=== PATIENT | male | born 1995 | race Caucasian/White ===

== ENCOUNTER → 2025-06-15 | Outpatient (CLI) | payer OTHER, SELFPAY ==
--- OUTSIDE RECORDS SUMMARY | 2025-06-15 15:57 | XMS RPT_ITS | CCD ---
Author Organization [facility] Care Team Providers Care Sales Compensation Analyst Name Role Phone Jesse Chi Unavailable Unavailable Ungur, Remus Unavailable Unavailable MASSANYI, MEHREEN Z Unavailable Unavailable STRINGER, CHI A Unavailable Unavailable STRINGER, CHI A Unavailable Unavailable MASSANYI, MEHREEN Z Unavailable Unavailable MASSANYI, MEHREEN Z Unavailable Unavailable STRINGER, CHI A Unavailable Unavailable STRINGER, CHI A Unavailable Unavailable MASSANYI, MEHREEN Z Unavailable Unavailable MASSANYI, MEHREEN Z Unavailable Unavailable ANDRADE LAGUNA Attending Unavailable [facility] STR[facility] Primary Care Unavailable Problems Problem Classification Problem Date Documented Da te Episodic/Chronic Disorders of teeth and jaw (1 source) Other specified disorders of teeth and supporting structures; Translations: [OTHER SPECIFIED DISORDERS OF TEETH AND SUPPORTING STRUCTURES] Onset: 05-21-2017 Episodic Results Test Name Value Interpretation Reference Range Facility DUPLEX SCROTUMon 02-22-20 DUPLEX SCROTUM CLINICAL HISTORY: Epidermoid cyst of the right testicle demonstrated onultrasound performed 09/01/2015 with surgical removal of September 2015TECHNIQUE: Grayscale, color and spectral Doppler evaluation of the scrotum andinguinal canals was performed.COMPARISON: 04/30/2016FINDINGS:RIGHT:T ESTIS SIZE: 5 cm x 2.2 cm x 2.9 cm - volume 16.9 mL.POSITION: Right scrotal sac.PARENCHYMA: The postoperative site is again noted in the superior right testicle but is now less well defined and decreasing in size representing postoperativehealing changes. The remainder of the right testicle appears normalEPIDIDYMIS: Normal. 0.8 cm head.INGUINAL CANAL: Normal spermatic cord. No hernia.LEFT:TESTIS SIZE: 5.1 cm x 1.9 cm x 3.1 cm - volume mL.POSITION: Left scrotal sac.PARENCHYMA: Normal testicular echogenicity. No lesions.EPIDIDYMIS: Normal. 1.1 cm head. 3 mm epididymal cyst is incidentally notedINGUINAL CANAL: Normal spermatic cord. No hernia.OTHER FINDINGS: Mild dilation of the pampiniform plexus is again notedDOPPLER: Spectral Doppler evaluation demonstrates arterial waveforms within both testes. Venous waveforms are also present on the spectral tracings. The overall color flow is symmetric. No epididymal hyperemia.IMPRESSION:Oc nued interval improvement in postoperative site involving the right uppertesticle at site of earlier resection of epidermoid cyst.This report has been created using voice recognition software. It may containminor errors which are inherent in voice recognition technologySigned by: Dr. Malik Bazan at 02/21/2017 11:27 Normal [facility] US SCROTUM AND TESTICLESon 0 02-21-2017 US SCROTUM AND TESTICLES CLINICAL HISTORY: Epidermoid cyst of the right testicle demonstrated onultrasound performed 09/01/2015 with surgical removal of September 2015TECHNIQUE: Grayscale, color and spectral Doppler evaluation of the scrotum andinguinal canals was performed.COMPARISON: 04/30/2016FINDINGS:RIGHT:T ESTIS SIZE: 5 cm x 2.2 cm x 2.9 cm - volume 16.9 mL.POSITION: Right scrotal sac.PARENCHYMA: The postoperative site is again noted in the superior right testicle but is now less well defined and decreasing in size representing postoperativehealing changes. The remainder of the right testicle appears normalEPIDIDYMIS: Normal. 0.8 cm head.INGUINAL CANAL: Normal spermatic cord. No hernia.LEFT:TESTIS SIZE: 5.1 cm x 1.9 cm x 3.1 cm - volume mL.POSITION: Left scrotal sac.PARENCHYMA: Normal testicular echogenicity. No lesions.EPIDIDYMIS: Normal. 1.1 cm head. 3 mm epididymal cyst is incidentally notedINGUINAL CANAL: Normal spermatic cord. No hernia.OTHER FINDINGS: Mild dilation of the pampiniform plexus is again notedDOPPLER: Spectral Doppler evaluation demonstrates arterial waveforms within both testes. Venous waveforms are also present on the spectral tracings. The overall color flow is symmetric. No epididymal hyperemia.IMPRESSION:Oc nued interval improvement in postoperative site involving the right uppertesticle at site of earlier resection of epidermoid cyst.This report has been created using voice recognition software. It may containminor errors which are inherent in voice recognition technologySigned by: Dr. Malik Bazan at 02/21/2017 11:27 Normal [facility] Encounters Encounter Date Encounter Type Care Provider Facility Start: 09-15-2018 End: 09-15-2018 Emergency department patient visit ANDRADE LAGUNA Facility:B Start: 02-21-2017 End: 02-22-2017 Ambulatory [facility] Start: 02-06-2017 End: 02-06-2017 Ambulatory MEHREEN CARLOS [facility] Start: 06-25-2015 End: 06-26-2015 Emergency department patient visit hCi Stringer Facility:[facility] Payers Date Payer Category Payer Self-pay 1995 Unknown [id number] Unknown [id number] Unknown [id number] Summary Purpose Family History No Family History Records FoundNo Family History Records FoundNo Family History Records Found Advance Directives No Advanced Directives Records FoundNo Advanced Directives Records FoundNo Advanced Directives Records Found Additional Source Comments (unrecognized sect ion and content) No Status Records FoundNo Status Records FoundNo Status Records Found INFORMATION SOURCE (unrecogn ized section and content) DATE CREATED AUTHOR 12/30/2017 [facility] DATE CREATED AUTHOR AUTHOR'S ORGANIZ ATION 12/31/2017 [facility] DATE CREATED AUTHOR AUTHOR'S ORGANIZ ATION 09/15/2018 [facility] [place] [facility] [place] FOR RECORDS PERTAINING TO PATIENTS WHO ARE OR HAVE BEEN ENROLLED IN A CHEMICAL DEPENDENCY/SUBSTANCEABUSE PROGRAM, SOME INFORMATION MAY BE OMITTED. This clinical summary was aggregated from multiple sources. Caution should be exercised in using it in the provision of clinical care. This summary normalizes information from multiple sources, and as a consequence, information in this document may materially change the coding, format and clinical context of patient data. In addition, data may be omitted in some cases. CLINICAL DECISIONS SHOULD BE BASED ON THE PRIMARY CLINICAL RECORDS. [employer] [facility]. provides no warranty or guarantee of the accuracy or completeness of information in this document.
[2025-06-15 18:10] LABS: Anion Gap 13 (5-15); BUN 13 mg/dL (4-19); BUN/Creat Ratio 16.9 RATIO (10-20); Calcium,Total 9.7 mg/dL (7.6-11.0); Carbon Dioxide 26.8 mmol/L (21.0-32.0); Chloride 101 mmol/L (98-108); Cholesterol 145 mg/dL (<=200); Glucose 82 mg/dL (70-99); Low Density Lipoprotein Calc. 92 mg/dL; Potassium 3.3 mmol/L (3.3-5.1); Triglycerides 80 mg/dL; Very Low Density Lipoprotein 16 mg/dL (5-40); cholesterol:hdl ratio screen 3.91
== END | disposition home or self-care (01) ==
LOC: MTLAB 15:24
PROVIDERS: PCP Family Medicine; Referring Provider Nurse Practitioner Family; Visit Provider Nurse Practitioner Family
DX: Z13.1 Encounter for screening for diabetes mellitus (principal); Z13.220 Encounter for screening for lipoid disorders
CPT/HCPCS: 36415; 80048; 80061